=== PATIENT | male | born 2000 | race Caucasian/White ===

== ENCOUNTER 2023-04-12 19:44 | Emergency (ER) | payer BC ==
[2023-04-12] MEDS ORDERED: Ketorolac 60 MG/2 ML SDV IM ONE (20:38)
[2023-04-12 20:39] LABS: CORONAVIRUS COVID-19 NAA NEGATIVE (NEGATIVE); INFLUENZA A NAA POSITIVE (NEGATIVE); RESPIRATORY SYNCYTIAL VIR NAA NEGATIVE (NEGATIVE)
[2023-04-12] MEDS ORDERED: Oseltamivir 75 MG Cap PO ONE (21:36)
== END 2023-04-12 22:06 | disposition home or self-care (01) ==
LOC: JD.ED 19:44
DX: J10.1 Influenza due to other identified influenza virus with other respiratory manifestations (principal); J45.909 Unspecified asthma, uncomplicated; Z90.49 Acquired absence of other specified parts of digestive tract; Z20.822 Contact with and (suspected) exposure to COVID-19; Z79.899 Other long term (current) drug therapy
CPT/HCPCS: 0241U; 96372; 99284; A9270; J1885